=== PATIENT | male | born 1995 | race African-American/Black ===

== ENCOUNTER 2022-04-28 07:18 | Emergency (ER) | payer BC ==
[~2022-04-28] VITALS: Ht 182.9 cm; Wt 106.0 kg
[2022-04-28] MEDS ORDERED: IBUPROFEN 400MG TABLET PO ONE (08:00)
[2022-04-28] MEDS ORDERED: ACETAMINOPHEN 325MG TABLET PO ONE (08:00)
[2022-04-28] MEDS ORDERED: ONDANSETRON HCL 4MG TABLET PO ONE (08:00)
[2022-04-28 10:00] VITALS: BP 115/60
== END 2022-04-28 10:05 | disposition home or self-care (01) ==
LOC: ER 07:18
DX: R50.9 Fever, unspecified (principal); R05.9 Cough, unspecified; Z20.822 Contact with and (suspected) exposure to COVID-19; R09.81 Nasal congestion; M79.18 Myalgia, other site; R11.0 Nausea; J34.89 Other specified disorders of nose and nasal sinuses
CPT/HCPCS: 87426; 87804; 99284; C9803; Q0162